=== PATIENT | female | born 1970 | race Caucasian/White ===

== ENCOUNTER 2021-06-24 01:31 | Emergency (ER) | payer OTHER ==
[~2021-06-24] VITALS: Ht 162.6 cm; Wt 90.7 kg
[2021-06-24 01:38] VITALS: BP 217/111
--- NOTE | 2021-06-24 01:41 | NUR ---
TO LOBBY A/W BED AMBULATORY
--- NOTE | 2021-06-24 02:00 | NUR ---
SEEN AND EXAMINED BY MIN , WITH ORDERS AND CARRIED OUT.
[2021-06-24] MEDS ORDERED: KETOROLAC 30 MG/ML VIAL IM ONE (02:05)
[2021-06-24] MEDS ORDERED: HYDROcodone/APAP 5/325 MG 1 TAB TAB PO ONE (02:05)
--- NOTE | 2021-06-24 02:10 | NUR ---
MEDICATED PER [facility] ORDER, TOLERATED WELL.
[2021-06-24] MEDS ORDERED: LIDOCAINE MPF 1% 10 MG/ML VIAL INJ ONE (03:55)
--- NOTE | 2021-06-24 04:45 | NUR ---
CLOSED REDUCTION OF LEFT WRIST FX DONE BY DR MANCUSO AT BEDSIDE.
[2021-06-24] MEDS ORDERED: HYDR-5080 PO (05:02)
[2021-06-24] MEDS ORDERED: IBUP-2809 PO (05:02)
[2021-06-24 05:10] VITALS: BP 159/96
== END 2021-06-24 05:10 | disposition home or self-care (01) ==
LOC: MED 01:31
DX: S52.592A Other fractures of lower end of left radius, initial encounter for closed fracture (principal); S52.612A Displaced fracture of left ulna styloid process, initial encounter for closed fracture; Z79.899 Other long term (current) drug therapy; W19.XXXA Unspecified fall, initial encounter; Y93.89 Activity, other specified; Y92.89 Other specified places as the place of occurrence of the external cause; Y99.8 Other external cause status
CPT/HCPCS: 25605; 73110; 96372; 99283; J1885; J2001